=== PATIENT | female | born 1960 | race Caucasian/White ===

== ENCOUNTER 2016-12-22 22:20 | Emergency (ER) | payer BC ==
[~2016-12-22] VITALS: Ht 170.2 cm; Wt 89.0 kg
[2016-12-22] MEDS ORDERED: PRILOSEC20 MG PO (22:35)
[2016-12-22] MEDS ORDERED: ADULT ASPIRIN E81 MG PO (22:36)
[2016-12-23 00:15] LABS: URINE BILIRUBIN - DIPSTICK NEGATIVE (NEGATIVE); URINE BLOOD DIPSTICK NEGATIVE (NEGATIVE); URINE CLARITY CLEAR; URINE COLOR YELLOW; URINE GLUCOSE - DIPSTICK NEGATIVE (NEGATIVE); URINE KETONE 40 mg/dL (NEGATIVE); URINE LEUK ESTERASE NEGATIVE (NEGATIVE); URINE NITRITE - DIPSTICK NEGATIVE (Negative); URINE PROTEIN - DIPSTICK NEGATIVE (NEG-TRACE); URINE SPECIFIC GRAVITY >=1.030; URINE UROBILINOGEN - DIPSTICK 0.2 E.U./dL (0.2)
[2016-12-23 00:56] LABS: HEMATOCRIT 35.6 % (37.0-47.0); HEMOGLOBIN 12.5 g/dl (12.0-16.0); IMMATURE GRANULOCYTES 0.4 % (0.0-1.0); MEAN CELL VOLUME 87.7 fL CALC (80.0-100.0); MEAN CORPUSCULAR HGB 30.8 pG CALC (26.0-32.0); MEAN CORPUSCULAR HGB CONC 35.1 g/L CALC (32.0-36.0); NEUT# 5.22 thou/uL (2.00-7.15); RED BLOOD COUNT 4.06 mill/uL (4.20-5.60); RED CELL DISTRI WIDTH 11.9 % (11.5-15.5)
[2016-12-23 01:17] LABS: ALBUMIN 4.4 g/dL (3.2-5.0); ALKALINE PHOSPHATASE 71 u/l (38-126); AMYLASE 38 u/l (30-110); ANION GAP 16 (6-22 (CALC)); BILIRUBIN, TOTAL 0.8 mg/dL (0.0-1.4); BUN 4 mg/dL (7-17); BUN/CREATININE RATIO 7 (12-20 (CALC)); CALCIUM 9.8 mg/dL (8.4-10.2); CARBON DIOXIDE 26 mmol/l (22-30); CHLORIDE 90 mmol/l (95-108); CREATININE 0.6 mg/dL (0.5-1.0); GFR > 60 ML/MIN (>=60 (CALC)); GFR FOR AFR.AMER. > 60 ML/MIN (>=60 (CALC)); GLUCOSE 98 mg/dL (65-105); LIPASE 86 u/l (23-300); POTASSIUM 4.2 mmol/l (3.5-5.1); SGOT/AST 26 u/l (14-36); SGPT/ALT 30 u/l (9-52); SODIUM 128 mmol/l (137-146)
[2016-12-23] MEDS ORDERED: ZOFRAN ODT4 MG PO (02:52)
[2016-12-23] MEDS ORDERED: ULTRAM50 M1 PO (02:52)
[2016-12-23 03:15] VITALS: BP 133/67
[2016-12-23 03:59] LABS: TSH, 3RD GENERATION 2.73 uIU/mL (0.47 - 4.68)
== END 2016-12-23 03:15 | disposition home or self-care (01) | DRG 392 ==
LOC: ED 22:20
PROVIDERS: Emergency Medicine
DX: R10.9 Unspecified abdominal pain (principal); N28.1 Cyst of kidney, acquired; E86.0 Dehydration; R11.2 Nausea with vomiting, unspecified; K44.9 Diaphragmatic hernia without obstruction or gangrene; K64.4 Residual hemorrhoidal skin tags
CPT/HCPCS: Q9967

== ENCOUNTER 2024-01-07 15:57 | Emergency (ER) | payer SELFPAY ==
[2024-01-07] VITALS (7 sets, daily range): BP systolic 139–171; BP diastolic 72–88
[~2024-01-07] VITALS: Ht 170.2 cm; Wt 77.0 kg
[~2024-01-07 15:57] MED LIST: ADULT ASPIRIN E81 MG PO; PRILOSEC20 MG PO; ULTRAM50 M1 PO; ZOFRAN ODT4 MG PO
[2024-01-07] MEDS ORDERED: SODIUM CHLORIDE 0.9% 1,000 ML IV ONE (16:05)
[2024-01-07] MEDS ORDERED: KETOROLAC TROMETHAMINE 30 MG/ML SDV IV ONE (16:10)
[2024-01-07] MEDS ORDERED: ONDANSETRON HCl 4 MG/2 ML SDV IV ONE (16:10)
[2024-01-07] MEDS ORDERED: MORPHINE SULFATE 4 MG/ML VIAL IV ONE (16:10)
[2024-01-07 16:24] LABS: BASO% 0.6 % (0-3); EOS% 0.9 % (0-8); HEMATOCRIT 37.9 % (37.0-47.0); HEMOGLOBIN 12.8 g/dl (12.0-16.0); IMMATURE GRANULOCYTES 0.2 % (0.0-5.0); LYMPH% 16.7 % (15-41); MEAN CELL VOLUME 91.1 fL CALC (80.0-100.0); MEAN CORPUSCULAR HGB 30.8 pG CALC (26.0-32.0); MEAN CORPUSCULAR HGB CONC 33.8 g/dL CAL (32.0-36.0); MONO% 6.3 % (2-13); NEUT# 6.67 thou/uL (2.00-7.15); NEUT% 75.3 % (42-76); RED BLOOD COUNT 4.16 mill/uL (4.20-5.60); RED CELL DISTRI WIDTH 12.1 % (11.5-15.5)
[2024-01-07 16:28] LABS: URINE BLOOD DIPSTICK Negative (NEGATIVE); URINE GLUCOSE - DIPSTICK Negative (NEGATIVE); URINE KETONE >=160 mg/dL (NEGATIVE); URINE LEUK ESTERASE Negative (NEGATIVE); URINE NITRITE - DIPSTICK Negative (Negative); URINE PROTEIN - DIPSTICK 30 mg/dL (NEG-TRACE); URINE SPECIFIC GRAVITY 1.025; URINE UROBILINOGEN - DIPSTICK 0.2 E.U./dL (0.2)
[2024-01-07 16:29] LABS: URINE COLOR Yellow; URINE RBC 0-2 RBC/hpf (0-5); URINE SQUAMOUS EPITHELIAL CELL FEW EPI/hpf (0-FEW); URINE WBC 0-2 WBC/hpf (0-5)
[2024-01-07 16:38] LABS: ALBUMIN 4.5 g/dL (3.2-5.0); BILIRUBIN, TOTAL 0.9 mg/dL (0.02-1.3); CREATININE 0.5 mg/dL (0.5-1.0); POTASSIUM 3.9 mmol/l (3.5-5.1); TOTAL PROTEIN 7.6 g/dL (6.3-8.2)
[2024-01-07] MEDS ORDERED: TRAMADOL HYDROC50 M1 PO (17:29)
[2024-01-07] MEDS ORDERED: NAPROXEN500 MG PO (17:29)
== END 2024-01-07 17:37 | disposition home or self-care (01) | DRG 700 ==
LOC: ED 15:57
PROVIDERS: Family Medicine
DX: N28.1 Cyst of kidney, acquired (principal)